=== PATIENT | male | born 1950 | race Caucasian/White ===

== ENCOUNTER 2017-03-11 01:05 | Emergency (ER) | payer MEDICARE, BC, OTHER ==
[~2017-03-11] VITALS: Ht 190.5 cm; Wt 127.9 kg
--- NOTE | 2017-03-11 01:08 | ED.ADGEN ---
Past History Past Medical History: CAD, Hypertension Adult General Chief Complaint Chief Complaint " I felt like it was gas... I took some anti acid.. but it did not help.. It all started about 9,, but gotten worse by 10... " HPI HPI Patient is a 66 year old male who presents with above hx and complaints nausea, vomiting and generalized abd. pain. Patient rates pain 7 out of 10. Pain is somewhat localized to right flank and right lower quadrant. No history of trauma. No history of specific ill contacts. No history of travel. 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 Patient did eat dinner tonight without problems. No history of kidney stones. No history of abdomen surgeries. No history immunosuppression. Patient has been passing gas. No history of tarry stools. No exposure to reptiles or sick animals. 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 Patient normally follows with Cornelia Diaz. Review of Systems Review of Systems Constitutional: Denies fever or chills [] Eyes: Denies change in visual acuity, redness, or eye pain [] HENT: Denies nasal congestion or sore throat [] Respiratory: Denies cough or shortness of breath [] Cardiovascular: No additional information not addressed in HPI [] GI: Complains of abdominal pain, nausea,. Denies vomiting, bloody stools or diarrhea [] : Denies dysuria or hematuria [] Musculoskeletal: Denies back pain or joint pain [] Integument: Denies rash or skin lesions [] Neurologic: Denies headache, focal weakness or sensory changes [] Endocrine: Denies polyuria or polydipsia [] All other systems were reviewed and found to be within normal limits, except as documented in this note. Family History Family History Mother has hx of renal stones. Current Medications Current Medications Current Medications Medications (Trade) Dose Ordered Sig/Rod Start Time Stop Time Status Last Admin Dose Admin Famotidine (Pepcid Vial) 20 mg 1X ONCE 03/11/17 02:00 03/11/17 02:02 DC 03/11/17 01:57 20 MG Ketorolac Tromethamine (Toradol) 30 mg STK-MED ONCE 03/11/17 03:56 03/11/17 03:57 DC Magnesium Hydroxide (Milk Of Magnesia) 2,400 mg 1X ONCE 03/11/17 03:00 03/11/17 03:01 DC 03/11/17 02:56 2,400 MG Morphine Sulfate (Morphine 10mg Syringe) 10 mg 1X ONCE 03/11/17 02:00 03/11/17 02:02 DC 03/11/17 01:57 10 MG Ondansetron HCl (Zofran) 8 mg 1X ONCE 03/11/17 02:00 03/11/17 02:02 DC 03/11/17 01:57 8 MG Potassium Chloride (KCl Oral Soln) 40 meq 1X ONCE 03/11/17 03:00 03/11/17 03:01 DC 03/11/17 02:56 40 MEQ Sodium Chloride 1,000 ml @ 1,000 mls/hr Q1H 03/11/17 02:00 03/11/17 02:59 DC 03/11/17 01:55 1,000 MLS/HR See nursing for home meds Allergies Allergies Allergies Coded Allergies Type Severity Reaction Last Updated Verified No Known Drug Allergies 03/11/17 No No known drug allergies Physical Exam Physical Exam Constitutional: Well developed, well nourished, moderately acute distress, non- toxic appearance. [] HENT: Normocephalic, atraumatic, bilateral external ears normal, oropharynx moist, no oral exudates, nose normal. [] Eyes: PERRLA, EOMI, conjunctiva normal, no discharge. [] Neck: Normal range of motion, no tenderness, supple, no stridor. [] Cardiovascular:Heart rate regular rhythm, no murmur [] Lungs & Thorax: Bilateral breath sounds clear to auscultation [] Abdomen: Bowel sounds normal, soft, generalized tenderness, no masses, no pulsatile masses. Distended. Umbilicus hernia. Skin: Warm, dry, no erythema, no rash. [] Back: No tenderness, some lower right CVA tenderness on percussion. Extremities: No tenderness, no cyanosis, no clubbing, ROM intact, no edema. [] Patient is ambulatory without problem. Neurologic: Alert and oriented X 3, normal motor function, normal sensory function, no focal deficits noted. [] Psychologic: Affect normal, judgement normal, mood normal. [] Current Patient Data Vital Signs Vital Signs Date Time Temp Pulse Resp B/P (MAP) Pulse Ox O2 Delivery O2 Flow Rate FiO2 03/11/17 01:05 98.4 73 20 94 Room Air Lab Results Laboratory Tests Test 03/11/17 01:50 White Blood Count 10.5 x10^3/uL (4.0-11.0) Red Blood Count 4.76 x10^6/uL (4.30-5.70) Hemoglobin 14.0 g/dL (13.0-17.5) Hematocrit 40.6 % (39.0-53.0) Mean Corpuscular Volume 85 fL (79-100) Mean Corpuscular Hemoglobin 29 pg (25-35) Mean Corpuscular Hemoglobin Concent 34 g/dL (31-37) Red Cell Distribution Width 13.3 % (11.5-14.5) Platelet Count 191 x10^3/uL (140-400) Neutrophils (%) (Auto) 84 % (31-73) H Lymphocytes (%) (Auto) 11 % (24-48) L Monocytes (%) (Auto) 4 % (0-9) Eosinophils (%) (Auto) 0 % (0-3) Basophils (%) (Auto) 0 % (0-3) Neutrophils # (Auto) 8.8 x10^3uL (1.8-7.7) H Lymphocytes # (Auto) 1.2 x10^3/uL (1.0-4.8) Monocytes # (Auto) 0.4 x10^3/uL (0.0-1.1) Eosinophils # (Auto) 0.0 x10^3/uL (0.0-0.7) Basophils # (Auto) 0.0 x10^3/uL (0.0-0.2) Prothrombin Time 9.8 SEC (9.4-11.4) Prothrombin Time INR 1.0 (0.9-1.1) PTT 21 SEC (23-33) L Urine Collection Type U cath Urine Color Straw Urine Clarity Clear Urine pH 5.0 Urine Specific Martha 1.025 Urine Protein Neg (NEG-TRACE) Urine Glucose (UA) Neg mg/dL (NEG) Urine Ketones (Stick) Trace mg/dL (NEG) Urine Blood Small (NEG) Urine Nitrite Neg (NEG) Urine Bilirubin Neg (NEG) Urine Urobilinogen Dipstick 0.2 mg/dL (0.2 mg/dL) Urine Leukocyte Esterase Neg (NEG) Urine RBC 3-5 /HPF (0-2) Urine WBC 0 /HPF (0-4) Urine Squamous Epithelial Cells Few /LPF Urine Bacteria Few /HPF (0-FEW) Urine Mucus Slight /LPF Sodium Level 141 mmol/L (136-145) Potassium Level 3.2 mmol/L (3.5-5.1) L Chloride Level 102 mmol/L (98-107) Carbon Dioxide Level 26 mmol/L (21-32) Anion Gap 13 (6-14) Blood Urea Nitrogen 23 mg/dL (8-26) Creatinine 1.3 mg/dL (0.7-1.3) Estimated GFR (Cockcroft-Gault) 55.6 Glucose Level 157 mg/dL (70-99) H Calcium Level 9.4 mg/dL (8.5-10.1) Total Bilirubin 0.8 mg/dL (0.2-1.0) Direct Bilirubin 0.2 mg/dL (0.0-0.2) Aspartate Amino Transferase (AST) 34 U/L (15-37) Alanine Aminotransferase (ALT) 57 U/L (16-63) Alkaline Phosphatase 97 U/L (46-116) Total Protein 7.4 g/dL (6.4-8.2) Albumin 4.2 g/dL (3.4-5.0) Amylase Level 58 U/L (25-115) Lipase 162 U/L (73-393) EKG EKG My interpretation of EKG shows a sinus rhythm at 78 bpm. Does have slightly prolonged QT interval. There is no findings acute STEMI of contralateral changes.[] Radiology/Procedures Radiology/Procedures My dictation dictation of abdomen film shows no free air under diaphragm. Does have a dilated gastric bubble and H. hernia. Does have findings of increased stool a few isolated bowel loops. CT shows no acute surgical processes. Does have umbilicus hernia. Does have a intrarenal stone on right as well as a small stone in the bladder. See formal report when available[] Course & Med Decision Making Course & Med Decision Making Pertinent Labs and Imaging studies reviewed. (See chart for details) Clear fluid diet x 24 hrs. No solids or milk products. Allow bowel rest. Follow up all labs with primary. Have a repeat UA to make sure hematuria clears. Review ED work up with primary. Recheck glucose levels. [] Final Impression Final Impression 1. Abdomen pain[] 2. Hematuria 3. Renal colic 4. Hypokalemia 5. Constipation 6. Elevated Glucose Problems: Dragon Disclaimer Dragon Disclaimer This electronic medical record was generated, in whole or in part, using a voice recognition dictation system. KACY JACOME MD Mar 11, 2017 01:08
--- NOTE | 2017-03-11 01:27 | EKG ---
[address] [address] Test Date: 2017-03-11 Test Time: 01:24:28 Pat Name: JEF PENA Department: Room: Gender: M Incident Response Engineer: ASHELY : [id number] Requested By: KACY JACOME Order Number: [id number] Reading MD: Measurements Intervals Ruth Rate: 78 P: -34 IN: 162 QRS: 8 QRSD: 96 T: 20 QT: 420 QTc: 483 Interpretive Statements SINUS RHYTHM PROLONGED QT NO SPECIFIC ECG ABNORMALITIES RI6.01 No previous ECG available for comparison
[2017-03-11] MEDS ORDERED: ONDANSETRON PF 4 MG/2 ML VIAL. IV ONE (02:00)
[2017-03-11] MEDS ORDERED: FAMOTIDINE 20 MG/2 ML VIAL IVP ONE (02:00)
[2017-03-11] MEDS ORDERED: IV NORMAL SALINE 1,000ML 1,000 ML IV SCH (02:00)
[2017-03-11] MEDS ORDERED: MORPHINE SULFATE 10 MG/ML SYRINGE. SQ ONE (02:00)
[2017-03-11 02:14] LABS: BASO % 0 % (0-3); EOS % 0 % (0-3); HEMATOCRIT 40.6 % (39.0-53.0); LYMPH # 1.2 x10^3/uL (1.0-4.8); LYMPH % 11 % (24-48); MEAN CORPUSCULAR HEMOGLOBIN 29 pg (25-35); MEAN CORPUSCULAR HGB CONC 34 g/dL (31-37); MEAN CORPUSCULAR VOLUME 85 fL (79-100); MONO # 0.4 x10^3/uL (0.0-1.1); MONO % 4 % (0-9); NEUT # 8.8 x10^3uL (1.8-7.7); NEUT % 84 % (31-73); PLATELET COUNT 191 x10^3/uL (140-400); RED BLOOD COUNT 4.76 x10^6/uL (4.30-5.70); RED CELL DISTRIBUTION WIDTH 13.3 % (11.5-14.5); WHITE BLOOD COUNT 10.5 x10^3/uL (4.0-11.0)
[2017-03-11 02:17] LABS: BILIRUBIN,URINE NEG (NEG); CLARITY,URINE CLEAR; COLOR,URINE STRAW; GLUCOSE,URINE NEG (NEG)
[2017-03-11 02:18] LABS: BACTERIA,URINE FEW /HPF (0-FEW); NITRITE,URINE NEG (NEG); SQUAMOUS EPITHELIAL CELL,UR FEW /LPF; UROBILINOGEN,URINE 0.2 mg/dL (0.2 mg/dL); WBC,URINE 0 /HPF (0-4)
[2017-03-11 02:32] LABS: ALBUMIN 4.2 g/dL (3.4-5.0); CALCIUM 9.4 mg/dL (8.5-10.1); CREATININE 1.3 mg/dL (0.7-1.3); DIRECT BILIRUBIN 0.2 mg/dL (0.0-0.2); GFR 55.6; POTASSIUM 3.2 mmol/L (3.5-5.1); TOTAL BILIRUBIN 0.8 mg/dL (0.2-1.0); TOTAL PROTEIN 7.4 g/dL (6.4-8.2)
[2017-03-11] MEDS ORDERED: POTASSIUM CHLORIDE 20 MEQ/15 ML ORAL LIQUID. PO ONE (03:00)
[2017-03-11] MEDS ORDERED: MAGNESIUM HYDROXIDE 2,400 MG/30 ML ORAL.SUSP. PO ONE (03:00)
--- NOTE | 2017-03-11 03:42 | RAD ---
INDICATION: RLQ and right flank pain today. No prior injury or surgery. No prior exams for comparison COMPARISON: None. TECHNIQUE: Axial CT images obtained through the abdomen and pelvis without contrast. One or more of the following individualized dose reduction techniques were utilized for this examination: 1. Automated exposure control; 2. Adjustment of the mA and/or kV according to patient size; 3. Use of iterative reconstruction technique. FINDINGS: Mild linear opacities left lung base. Could be atelectasis. Moderate calcific atherosclerosis. Fat-containing right greater than left inguinal hernia. Coronary artery calcific atherosclerosis partially seen. No intrahepatic bile duct dilation. There are couple of subcentimeter low-density liver lesions which are a commonly seen finding and most commonly from benign causes unless the patient has a history of neoplasm. No definite peripancreatic edema. Spleen unremarkable. No left-sided hydronephrosis. Suspected cystic lesion left kidney measuring approximately 16 mm. No left-sided hydronephrosis. Urinary bladder is partially distended with a 1 mm calcification within. Mild haziness adjacent to right greater and left kidney. 1 mm nonobstructive right renal stone. Prostate calcifications. Mild prominence of the wall the transverse colon but the colon is decompressed in this region. Appendix not well seen. No dilated loops of bowel to suggest obstruction. Fat-containing umbilical hernia. Degenerative changes throughout the spine with multilevel central canal and neural foraminal stenosis. IMPRESSION: No evidence of bowel obstruction. There is mild haziness adjacent to the right greater than left kidney. No definite radiopaque ureter stone is seen at this time but there is a 1 mm calcification within the urinary bladder. This calcification could be secondary to a recently passed ureter stone or a tiny bladder stone. Probable cystic lesion left kidney. There couple low-density liver lesions which are too small to characterize on this exam. Portion of the transverse colon wall appears mildly prominent but this could be secondary to lack of distention. Electronically signed by: Homero Cloud MD (03/11/2017 3:38 AM) [facility]
[2017-03-11] MEDS ORDERED: KETOROLAC 60 MG/2 ML VIAL. IM ONE (03:55)
[2017-03-11] MEDS ORDERED: KETOROLAC 30 MG/ML VIAL. ONE (03:56)
[2017-03-11] MEDS ORDERED: KETOROLAC 30 MG/ML VIAL. IV ONE ×2 (04:00→04:15)
[2017-03-11] MEDS ORDERED: ONDA8TAB12 PO (04:19)
[2017-03-11] MEDS ORDERED: HYDR-79 PO (04:19)
[2017-03-11 04:25] VITALS: BP 114/70
[2017-03-11 06:57] LABS: INFLUENZA B PATIENT NEGATIVE (NEGATIVE)
[2017-03-11 06:58] LABS: INFLUENZA A PATIENT NEGATIVE (NEGATIVE)
--- NOTE | 2017-03-11 10:02 | RAD ---
Indication: Right lower quadrant and right flank pain. Technique: Multiple views of the abdomen and pelvis Comparison: None Findings: Heart is normal in size. Lungs are clear. No pneumothorax or pleural effusion. No evidence of free intraperitoneal air. No abnormally dilated bowel loops or air-fluid levels. Large amount of stool is seen in the ascending colon. N no abnormal calcific density seen projecting over the abdomen. Visualized osseous structures are within normal limits. Impression: No acute findings.
== END 2017-03-11 04:25 | disposition home or self-care (01) ==
LOC: ER 01:05
DX: N23 Unspecified renal colic (principal); E87.6 Hypokalemia; R79.89 Other specified abnormal findings of blood chemistry; K59.00 Constipation, unspecified; R31.9 Hematuria, unspecified; I10 Essential (primary) hypertension; I25.10 Atherosclerotic heart disease of native coronary artery without angina pectoris
CPT/HCPCS: 36415; 74022; 74176; 80048; 80061; 80076; 81001; 82150; 83690; 85025; 85610; 85730; 87804; 93005; 96361; 96372; 96374; 96375; 99285; J1885; J2270; J2405; S0028; J7030